=== PATIENT | male | born 1970 | race Caucasian/White ===

== ENCOUNTER → 2017-01-02 | Outpatient (CLI) | payer OTHER ==
[~2017-01-02] VITALS: Ht 179.1 cm; Wt 187.6 kg
[~2017-01-02] MED LIST: ALLEGRA 180MG180 MG PO; APRESOLINE 10MG10 MG PO; FISH OIL1000 MG PO; FLEXERIL 1010 MG/TAB PO; NORCO 325 MG-7.1 TAB PO; PERCOCET 325 MG1 TA2 PO; PRILOSEC 20MG20 MG PO; PRINZIDE 25 MG-1 TAB PO; ZESTRIL 10MG10 MG; ZYLOPRIM 300MG300 MG PO
[2017-01-02 15:58] VITALS: BP 144/54; PULSE 65
== END ==
LOC: LIGHT 11:23
DX: G47.33 Obstructive sleep apnea (adult) (pediatric) (principal); I10 Essential (primary) hypertension; E66.01 Morbid (severe) obesity due to excess calories; Z68.43 Body mass index [BMI] 50.0-59.9, adult; Z71.3 Dietary counseling and surveillance; M10.9 Gout, unspecified

== ENCOUNTER → 2017-01-27 | Outpatient (CLI) | payer OTHER | LOC: LIGHT 15:56 | DX: Z01.818 Encounter for other preprocedural examination (principal) ==

== ENCOUNTER → 2017-02-06 | Outpatient (CLI) | payer OTHER ==
[~2017-02-06] VITALS: Ht 179.1 cm; Wt 189.1 kg
[2017-02-06 17:05] VITALS: BP 118/68; PULSE 76
== END ==
LOC: LIGHT 10:34
DX: G47.33 Obstructive sleep apnea (adult) (pediatric) (principal); I10 Essential (primary) hypertension; M10.9 Gout, unspecified; E66.01 Morbid (severe) obesity due to excess calories; Z68.43 Body mass index [BMI] 50.0-59.9, adult

== ENCOUNTER → 2017-02-10 | Outpatient (CLI) | payer OTHER | LOC: LIGHT 16:03 | DX: Z01.818 Encounter for other preprocedural examination (principal) ==

== ENCOUNTER → 2017-04-03 | Outpatient (CLI) | payer OTHER ==
[~2017-04-03] VITALS: Ht 179.1 cm; Wt 188.5 kg
[~2017-04-03] MED LIST changes: +ADIPEX-P37.5 MG PO
[2017-04-03 16:26] VITALS: BP 110/72; PULSE 100
== END ==
LOC: LIGHT 10:10
DX: G47.33 Obstructive sleep apnea (adult) (pediatric) (principal); I10 Essential (primary) hypertension; E66.01 Morbid (severe) obesity due to excess calories; Z68.43 Body mass index [BMI] 50.0-59.9, adult; Z71.3 Dietary counseling and surveillance; M10.9 Gout, unspecified

== ENCOUNTER → 2017-04-04 | Outpatient (CLI) | payer OTHER | LOC: BHSO 09:08 | DX: Z01.818 Encounter for other preprocedural examination (principal) ==

== ENCOUNTER → 2017-05-01 | Outpatient (CLI) | payer OTHER ==
[~2017-05-01] VITALS: Ht 179.1 cm; Wt 183.9 kg
[2017-05-01 16:35] VITALS: BP 122/74; PULSE 80
== END ==
LOC: LIGHT 11:15
DX: G47.33 Obstructive sleep apnea (adult) (pediatric) (principal); I10 Essential (primary) hypertension; E66.01 Morbid (severe) obesity due to excess calories; Z68.43 Body mass index [BMI] 50.0-59.9, adult; Z71.3 Dietary counseling and surveillance; M10.9 Gout, unspecified

== ENCOUNTER → 2017-05-29 | Outpatient (CLI) | payer OTHER ==
[~2017-05-29] VITALS: Ht 179.1 cm; Wt 183.7 kg
[2017-05-29 08:46] VITALS: BP 112/72; PULSE 72
== END ==
LOC: LIGHT 08:30
DX: G47.33 Obstructive sleep apnea (adult) (pediatric) (principal); I10 Essential (primary) hypertension; E66.01 Morbid (severe) obesity due to excess calories; Z68.43 Body mass index [BMI] 50.0-59.9, adult; Z71.3 Dietary counseling and surveillance; M10.9 Gout, unspecified

== ENCOUNTER → 2017-07-21 | Outpatient (CLI) | payer OTHER ==
[~2017-07-21] VITALS: Ht 179.1 cm; Wt 183.7 kg
[2017-07-21 16:01] VITALS: BP 142/82; PULSE 80
== END ==
LOC: LIGHT 15:35
DX: G47.33 Obstructive sleep apnea (adult) (pediatric) (principal); I10 Essential (primary) hypertension; E66.01 Morbid (severe) obesity due to excess calories; Z68.43 Body mass index [BMI] 50.0-59.9, adult; Z71.3 Dietary counseling and surveillance; M10.9 Gout, unspecified
CPT/HCPCS: G0463

== ENCOUNTER → 2017-08-12 | Outpatient (CLI) | payer OTHER | LOC: LIGHT 09:33 | DX: Z01.89 Encounter for other specified special examinations (principal) ==

== ENCOUNTER 2017-08-27 11:22 | Observation (INO) | payer OTHER ==
[~2017-08-27] VITALS: Ht 180.3 cm; Wt 182.5 kg
[2017-08-27] VITALS (10 sets, daily range): BP systolic 119–147; BP diastolic 57–88; PULSE 52–101; TEMP 97.7–98.4
[2017-08-27] MEDS ORDERED: PRILOSEC 20MG20 MG PO (12:46)
[2017-08-28] VITALS (8 sets, daily range): BP systolic 125–159; BP diastolic 74–99; PULSE 84–93; TEMP 97.7–98.4
[2017-08-29 04:28] VITALS: BP 144/94; PULSE 89; TEMP 98.9
[2017-08-29 07:34] VITALS: BP 150/83; PULSE 79; TEMP 98.4
[2017-08-29 11:32] VITALS: BP 122/77; PULSE 59; TEMP 98.5
== END 2017-08-29 13:40 | disposition home or self-care (01) ==
LOC: SDCO 11:22 → MEDICAL 17:36 → SDCO 08-28 11:58 → MEDICAL 08-28 12:00
DX: E66.01 Morbid (severe) obesity due to excess calories (principal); Z68.43 Body mass index [BMI] 50.0-59.9, adult; I10 Essential (primary) hypertension; G47.33 Obstructive sleep apnea (adult) (pediatric); M10.9 Gout, unspecified
CPT/HCPCS: OP; A9284; G0378; J0690; J1100; J1170; J1885; J2001; J2250; J2270; J2405; J2704; J2710; J7120

== ENCOUNTER → 2017-09-01 | Outpatient (CLI) | payer OTHER ==
[~2017-09-01] VITALS: Ht 180.3 cm; Wt 176.2 kg
[2017-09-01 14:24] VITALS: BP 90/60; PULSE 60
== END ==
LOC: LIGHT 09:17
DX: G47.33 Obstructive sleep apnea (adult) (pediatric) (principal); I10 Essential (primary) hypertension; E66.01 Morbid (severe) obesity due to excess calories; Z68.43 Body mass index [BMI] 50.0-59.9, adult; Z71.3 Dietary counseling and surveillance; M10.9 Gout, unspecified

== ENCOUNTER → 2017-10-13 | Outpatient (CLI) | payer OTHER ==
[~2017-10-13] VITALS: Ht 180.3 cm; Wt 174.4 kg
[~2017-10-13] MED LIST changes: +MULTIPLE VITAMI1 TA5 PO
[2017-10-13 13:27] VITALS: BP 126/72; PULSE 68
== END ==
LOC: LIGHT 09-29 13:01
DX: G47.33 Obstructive sleep apnea (adult) (pediatric) (principal); Z98.84 Bariatric surgery status; E66.01 Morbid (severe) obesity due to excess calories; Z68.43 Body mass index [BMI] 50.0-59.9, adult; Z71.3 Dietary counseling and surveillance; M10.9 Gout, unspecified

== ENCOUNTER → 2017-12-22 | Outpatient (CLI) | payer OTHER ==
[~2017-12-22] VITALS: Ht 180.3 cm; Wt 164.0 kg
[2017-12-22 15:29] VITALS: BP 126/90; PULSE 64
== END ==
LOC: LIGHT 15:19
DX: Z98.84 Bariatric surgery status (principal); E66.01 Morbid (severe) obesity due to excess calories; Z68.42 Body mass index [BMI] 45.0-49.9, adult; Z71.3 Dietary counseling and surveillance; G47.33 Obstructive sleep apnea (adult) (pediatric); M10.9 Gout, unspecified
CPT/HCPCS: G0463